=== PATIENT | female | born 1970 | race Caucasian/White ===

== ENCOUNTER 2019-08-10 12:29 | Emergency (ER) | payer OTHER ==
[2019-08-10] MEDS ORDERED: IPRATROPIUM/ALBUTEROL 3 ML NEB INH STA (13:01)
[2019-08-10] MEDS ORDERED: BENZONATATE 100 MG CAPSULE PO STA (13:01)
--- NOTE | 2019-08-10 13:21 | ED Physician Documentation ---
PD HPI URI - Stated complaint Stated Complaint: COUGH/CONGESTION - Chief complaint Chief Complaint: Heent - History obtained from History obtained from: Patient - History of Present Illness Timing - onset: How many days ago (3-4) Timing duration: Days (3-4) Timing details: Gradual onset Pain level max: 4 Pain level now: 3 Associated symptoms: Nasal congestion, Rhinorrhea, Productive cough (green). No: Fever, Chills, Sweats, Sore throat, Hemoptysis, Chest pain Contributing factors: Sick contact, Travel (from [place]) Improves by: Rest Worsened by: Activity, Breathing Recently seen: Not recently seen Review of Systems Constitutional: denies: Fever, Chills Nose: reports: Rhinorrhea / runny nose, Congestion Throat: denies: Sore throat Cardiac: denies: Chest pain / pressure Respiratory: reports: Cough, Wheezing GI: denies: Nausea, Vomiting, Diarrhea Skin: denies: Rash Musculoskeletal: denies: Neck pain, Back pain Neurologic: denies: Headache PD PAST MEDICAL HISTORY - Past Medical History Past Medical History: No - Present Medications Home Medications: Ambulatory Orders Medication Instructions Recorded Confirmed Albuterol Sulf [Ventolin Hfa 1 - 2 puffs INH Q4HR PRN #1 inhaler 08/10/19 Inhaler] Benzonatate [Tessalon Perle] 100 - 200 mg PO TID PRN #30 capsule 08/10/19 Cetirizine HCl/Pseudoephedrine 1 each PO BID PRN #30 tab.er.12h 08/10/19 [Zyrtec-D Tablet] predniSONE [Prednisone] 40 mg PO DAILY #10 tablet 08/10/19 - Allergies Allergies/Adverse Reactions: Allergies Allergy/AdvReac Type Severity Reaction Status Date / Time No Known Drug Allergies Allergy Verified 08/10/19 12:35 - Social History Does the pt smoke?: Yes Smoking Status: Current every day smoker Does the pt drink ETOH?: Yes ETOH Use: Wine Does the pt have substance abuse?: No PD ED PE NORMAL - Vitals Vital signs reviewed: Yes - General General: Alert and oriented X 3, No acute distress, Well developed/nourished - HEENT HEENT: Ears normal, Moist mucous membranes, Pharynx benign - Neck Neck: Supple, no meningeal sign - Cardiac Cardiac: RRR - Respiratory Respiratory: No respiratory distress, Other (Mild wheezing bilaterally) - Abdomen Abdomen: Soft, Non tender, Non distended - Derm Derm: Warm and dry, No rash - Extremities Extremities: No edema - Neuro Neuro: Alert and oriented X 3 - Psych Psych: Normal mood, Normal affect Results - Vitals Vitals: Vital Signs - 24 hr 08/10/19 08/10/19 08/10/19 12:35 13:20 14:13 Temperature 36.8 C 36.8 C Heart Rate 76 75 67 Respiratory 16 16 18 Rate Blood Pressure 134/98 H 137/87 H O2 Saturation 100 98 Oxygen O2 Source Room air - Rads (name of study) Chest x-ray Radiology: Prelim report reviewed, EMP read contemporaneously, See rad report (Negative chest) PD MEDICAL DECISION MAKING - ED course Complexity details: reviewed results, re-evaluated patient, considered differential, d/w patient ED course: Patient presents to the emergency department what appears to be a viral upper respiratory infection. Feels better after albuterol treatment. She is well- appearing, nontoxic. Afebrile. No hypoxia. No respiratory distress. No acute findings on x-ray. Patient counseled regarding signs and symptoms for which I believe and urgent re-evaluation would be necessary. Patient with good understanding of and agreement to plan and is comfortable going home at this time This document was made in part using voice recognition software. While efforts are made to proofread this document, sound alike and grammatical errors may occur. Departure - Departure Disposition: 01 Home, Self Care Clinical Impression: Viral URI Condition: Good Instructions: ED URI Viral Follow-Up: your,doctor in 1 week [Other] Prescriptions: Albuterol Sulf [Ventolin Hfa Inhaler] 1 - 2 puffs INH Q4HR PRN #1 inhaler PRN Reason: Shortness Of Air/Wheezing Benzonatate [Tessalon Perle] 100 - 200 mg PO TID PRN #30 capsule PRN Reason: Cough Cetirizine HCl/Pseudoephedrine [Zyrtec-D Tablet] 1 each PO BID PRN #30 tab.er.12h PRN Reason: nasal congestion predniSONE [Prednisone] 40 mg PO DAILY #10 tablet Comments: Return if you worsen. Follow-up with your doctor for further care. There is no pneumonia on your chest x-ray today. Drink plenty of fluids and rest. Discharge Date/Time: 08/10/19 14:13
--- NOTE | 2019-08-10 13:40 | XRAY Report ---
Reason: cough Procedure Date: 08/10/2019 Accession Number: [id number] / [id number] Procedure: XR - Chest 2 View X-Ray CPT Code: 87666 Final Report FULL RESULT: EXAM: CHEST RADIOGRAPHY EXAM DATE: 08/10/2019 01:12 PM. CLINICAL HISTORY: Cough. COMPARISON: None. TECHNIQUE: 2 views. FINDINGS: Lungs/Pleura: No consolidative process or focal airspace disease. Lung volumes are normal. Negative for pleural effusion and pneumothorax. Mediastinum: The heart size is normal. The trachea is midline. Other: None. IMPRESSION: Negative chest. RADIA
[2019-08-10 14:14] VITALS: BP 137/87
== END 2019-08-10 14:13 | disposition home or self-care (01) ==
LOC: ED 12:29
DX: J06.9 Acute upper respiratory infection, unspecified (principal); F17.200 Nicotine dependence, unspecified, uncomplicated
CPT/HCPCS: 71046; 94640; 99283; 99284; A9270

== ENCOUNTER 2019-11-02 17:02 | Outpatient (CLI) | payer SELFPAY | END 2019-11-02 17:03 | disposition critical access hospital (66) | LOC: EMS 17:02 | PROVIDERS: ATTEND Surgery | DX: S79.922A Unspecified injury of left thigh, initial encounter (principal); W18.39XA Other fall on same level, initial encounter; Y93.K1 Activity, walking an animal | CPT/HCPCS: A0425; A0429 ==

== ENCOUNTER 2019-11-02 17:27 | Emergency (ER) | payer OTHER ==
[2019-11-02] MEDS ORDERED: ACETAMINOPHEN 325 MG TABLET PO STA (17:44)
[2019-11-02] MEDS ORDERED: IBUPROFEN 600 MG TABLET PO STA (17:44)
[2019-11-02] MEDS ORDERED: TETANUS/DIPHTHERIA/PERTUSSIS 0.5 ML SYRINGE IM ONE (17:44)
[2019-11-02] MEDS ORDERED: MUPIROCIN 2% OINT 1 GM TOP STA (17:46)
--- NOTE | 2019-11-02 18:18 | ED Physician Documentation ---
PD HPI LOWER EXT INJURY - Stated complaint Stated Complaint: L LEG PX - Chief complaint Chief Complaint: Ext Problem - History obtained from History obtained from: Patient - History of Present Illness PD HPI LOW EXT INJURY LOCATION: Left, Knee, Thigh Type of injury: Fall (she states she stepped on a septic cover inintentionally and it slid out of position and her leg went into the septic tank. She states her knee and thigh struck the wall with abrasion and pain. She did not go to the level of the groin. Got herself out and was limping to walk due to lower thigh muscle pain. She noted significant focal swelling. No numbness in lower leg. Able to extend at knee but hurts.) Where injury occurred: Other (visiting relative; pt lives in [place].) Timing - onset: How many minutes ago (30) Timing - details: Abrupt onset, Still present (swelling seems less enroute and is lessening pain.) Worsened by: Moving, Palpating Associated symptoms: Swelling. No: Weakness, Numbness Contributing factors: No: Anticoagulated Similar symptoms before: Has not had sx before Review of Systems Musculoskeletal: denies: Neck pain, Back pain Neurologic: denies: Focal weakness, Numbness, Altered mental status, Head injury, LOC PD PAST MEDICAL HISTORY - Past Medical History Past Medical History: No - Present Medications Home Medications: Ambulatory Orders Medication Instructions Recorded Confirmed Albuterol Sulf [Ventolin Hfa 1 - 2 puffs INH Q4HR PRN #1 inhaler 08/10/19 Inhaler] Benzonatate [Tessalon Perle] 100 - 200 mg PO TID PRN #30 capsule 08/10/19 Cetirizine HCl/Pseudoephedrine 1 each PO BID PRN #30 tab.er.12h 08/10/19 [Zyrtec-D Tablet] predniSONE [Prednisone] 40 mg PO DAILY #10 tablet 08/10/19 - Allergies Allergies/Adverse Reactions: Allergies Allergy/AdvReac Type Severity Reaction Status Date / Time No Known Drug Allergies Allergy Verified 11/02/19 17:42 - Social History Does the pt smoke?: Yes Smoking Status: Current every day smoker Does the pt drink ETOH?: Yes Does the pt have substance abuse?: No PD ED PE NORMAL - Vitals Vital signs reviewed: Yes - General General: Alert and oriented X 3, Well developed/nourished, Other (anxious) - HEENT HEENT: Atraumatic - Neck Neck: Supple, no meningeal sign, No bony TTP - Derm Derm: Normal color, Warm and dry - Extremities Extremities: Other (anterior left thigh with abrasions lower and some soft tissue tenderness. Normal leg extension at knee with muscle definition appearing normal. Popliteal area not tender. The knee itslef is without effusion and no pain nor laxity on ligament testing. ) Results - Vitals Vitals: Vital Signs - 24 hr 11/02/19 11/02/19 17:30 18:25 Temperature 37.1 C Heart Rate 67 71 Respiratory 16 16 Rate Blood Pressure 137/97 H 130/88 H O2 Saturation 100 100 Oxygen O2 Source Room air PD MEDICAL DECISION MAKING - ED course Complexity details: considered differential (clinically not concern for fracture. Muscles seem intact with just sore extension. ), d/w patient Departure - Departure Disposition: 01 Home, Self Care Clinical Impression: Contusion, lower leg Qualifiers: Encounter type: initial encounter Laterality: left Qualified Code(s): S80.12XA - Contusion of left lower leg, initial encounter Abrasion of thigh Qualifiers: Encounter type: initial encounter Laterality: left Qualified Code(s): S70.312A - Abrasion, left thigh, initial encounter Accidental fall Qualifiers: Encounter type: initial encounter Qualified Code(s): W19.XXXA - Unspecified fall, initial encounter Condition: Stable Record reviewed to determine appropriate education?: Yes Instructions: ED Abrasion, ED Strain Muscle Ext Comments: Activity as tolerated. Use some ibuprofen or naproxen anti-inflammatories 2-3 times a day. Cleanse the abrasions was just soap and water once or twice daily and apply a little bit of ointment. Recheck if signs of infection otherwise I would anticipate healing over the next several days to week. Discharge Date/Time: 11/02/19 18:24
[2019-11-02 18:26] VITALS: BP 130/88
== END 2019-11-02 18:24 | disposition home or self-care (01) ==
LOC: ED 17:27
DX: S70.312A Abrasion, left thigh, initial encounter (principal); S80.12XA Contusion of left lower leg, initial encounter; W17.89XA Other fall from one level to another, initial encounter; Y93.K1 Activity, walking an animal; Z23 Encounter for immunization; F17.200 Nicotine dependence, unspecified, uncomplicated
CPT/HCPCS: 90471; 90715; 99283; A9270